=== PATIENT | female | born 2000 | race Caucasian/White ===

== ENCOUNTER 2019-01-28 22:54 | Emergency (ER) | payer MEDICARE, SELFPAY ==
[2019-01-28 22:54] VITALS: BP 110/69; PULSE 80; RESP 16; TEMP 36.8; O2SAT 100; BMI 21.0
--- NOTE | 2019-01-28 23:23 | ED.DCSUM_ITS ---
History of Present Illness Chief Complaint: Abd Pain Informant: Patient Onset: Today Context: Sudden Onset Timing: Continuous Quality: Pain Location: Left side of the abdomen Current Severity: Moderate Maximum Severity: Severe Worsened by: Walking, upright position Relieved by: Nothing Associated Symptoms: Nausea Narrative: Patient is a 18-year-old female whose last normal menstrual period was March 2018. She progesterone control. She has no history of STD or ovarian cyst. She does report lightheadedness with standing. Pain started abruptly while doing homework 2 hours prior to presentation. She denies cardiac, respiratory or urologic symptoms. Prior similar symptoms: No Recent Illness/Hospitalization: No - Past Medical History (1) No significant past medical history Status: Acute Past Medical History - Allergies and Home Meds Allergies/Adverse Reactions: Allergies No Known Allergies Allergy (Verified 01/28/19 22:57) Primary Care Physician: Jana Merrill NP-C [Primary Care Provider] - Lives: With Family Smoking Status: Never smoker Alcohol: None Drugs: None Review of Systems General: Denies: Chills, Fever, Malaise, Subjective, Sweats Eyes: Denies: Visual changes - bilaterally, Blurred Vision - bilaterally ENT: Denies: Rhinorrhea, Sore throat Cardiovascular: Denies: Chest pain, Palpitations, Heart racing Respiratory: Denies: Dyspnea, Cough, Dyspnea on exertion Gastrointestinal: Reports: Abdominal pain, Nausea. Denies: Vomiting, Diarrhea, Constipation, Melena, Hematochezia, -, - Genitourinary: Denies: Dysuria, Hematuria, Frequency Musculoskeletal: Denies: Myalgias, Arthralgias, Back pain, Extremity Pain Skin: Denies: Rash, Wounds Neurological: Denies: Headache, Weakness, Parasthesia, Numbness Hematologic: Denies: Easy bruising, Easy bleeding Physical Exam Vital Signs/Narrative: Vital Signs Temp Pulse Resp BP Pulse Ox 01/28/19 22:54 98.2 F 80 16 110/69 100 Inital Vital Signs reviewed: Yes General: Well nourished, Well developed, Acute Distress - Patient looks pale and uncomfortable Head: Normocephalic, Atraumatic Eyes: Perrl, EOMI. Negative for: Pale conjunctiva, Scleral icterus, - ENT: Moist mucous membranes, No rhinorrhea Neck: Supple, Nontender, No lymphadenopathy, No JVD, - Cardiovascular: Regular rate, Regular rhythm, No murmurs, Normal S1, Normal S2 Respiratory: No distress, CTA bilaterally, Chest nontender Abdomen: Soft, Nondistended, No masses, Tender, Guarding, Rebound tenderness, Hypoactive bowel sounds. Negative for: Normal bowel sounds, Hepatomegaly, Splenomegaly, Mass, Pulsatile mass Back: Nontender. Negative for: Normal Inspection, CVA tenderness - Assessing for CVA tenderness caused abdominal pain Extremities: Nontender, No edema Skin: No rash, Pallor. Negative for: Cyanosis, Diaphoresis, Jaundice Neurological: Alert, Oriented x3, Cranial nerves II-XII grossly intact, Normal Strength, Normal Sensation, Normal Gait - Patient gait was not normal. She had slight shuffling of her feet. She appeared uncomfortable walking from the examination room to the restroom. Psychological: Normal affect, Normal Mood Diagnostic/Tx/Re-eval Laboratory Results 01/28/19 01/28/19 01/28/19 23:15 23:20 23:20 WBC 10.1 RBC 4.63 Hgb 13.4 Hct 39.0 MCV 84.2 MCH 28.9 MCHC 34.4 RDW 12.7 RDW Differential 38.6 Plt Count 239 MPV 9.9 Immature Gran % (Auto) 0.200 Neut % (Auto) 49.1 Lymph % (Auto) 43.2 H [place]ink[place] % (Auto) 7.0 Eos % (Auto) 0.3 Baso % (Auto) 0.2 Absolute Neuts (auto) 5.0 Absolute Lymphs (auto) 4.35 Total Counted Not Reportable Serum , Qual NEGATIVE Urine Color Yellow Urine Clarity Sl. Cloudy Urine pH 7.0 Ur Specific [place] 1.015 Urine Protein 15 H Urine Glucose (UA) Normal Urine Ketones 5 H Urine Occult Blood 10 H Urine Nitrite Negative Urine Bilirubin Negative Urine Urobilinogen Normal Ur Leukocyte Esterase 25 H Urine RBC 0-5 SEEN Urine WBC 0-5 SEEN Ur Squamous Epith Cells 5-10 SEEN Urine Bacteria 2+ Urine Mucus 2+ - Medical Decision Making IV was established. Patient was made n.p.o. With abrupt onset of abdominal pain in a sexually active female with peritoneal findings need to evaluate for and specifically ectopic . This may rub resolved torsion or hemorrhagic ovarian cyst. Appropriate blood work was ordered. Laboratory tests are nondiagnostic. CBC and BMP are unremarkable. Serum test is negative. UA reveals no pyuria with 2+ bacteria and 5-10 epithelial cells. Orthostatic vitals were ordered and set up for pelvic exam. If orthostatic need to evaluate for hemorrhagic ovarian cyst. External genitalia normal. Vaginal cervical mucosa appeared normal. Patient's loss is not consistent with a normal part of cervix. Negative [place] sign. There is no cervical motion tenderness. Uterus is normal in size and nontender. Patient has mild discomfort with palpation of left ovary which is approximately the size of an almond. The right ovary is normal and nontender. Since patient has improved is not orthostatic will discharge to home with appropriate home-going instruction and more importantly reasons to return.. ED Disposition - Plan for ED Patient: Disposition: Home or Assisted Living Diagnosis: Ruptured ovarian cyst Instructions: ED Cyst Ovarian Referrals: Jana Merrill, ORAL-C [Primary Care Provider] - 3-5 Days if not improving Additional Instructions: Take either 4 Advil every 8 hours for the next 2-3 days or 2 Aleve every 12 hours for the next 2-3 days for your discomfort. If you become lightheaded, the pain becomes severe or you have referred pain to your right or left shoulder at return as soon as possible.
[2019-01-28] MEDS: Morphine 4 MG/ML Syringe IV (23:27)
[2019-01-28] MEDS: Ondansetron 4 MG/2 ML Vial IV (23:28)
[2019-01-28 23:32] LABS: Absolute Lymphocyte Count 4.35 X10^3/ul (0.83-4.51); Basophil# 0.02 X10^3/uL; Basophil% 0.2 % (0-1); Eosinophil# 0.03 X10^3/uL; Eosinophils% 0.3 % (0-5); Hemoglobin 13.4 g/dl (12.0-15.0); Lymphocyte # 4.35 X10^3/ul (4.0); Lymphocyte % 43.2 % (19-41); Mean Corp Hgb Conc 34.4 g/gl (32-36); Mean Corpuscular Hgb 28.9 pg (27.0-32.0); Mean Corpuscular Volume 84.2 fL (81-99); Mean Platelet Vol. 9.9 fl (6.2-12.0); Neutrophil # 4.95 X10^3/uL (2.7-7.7); Neutrophil % 49.1 % (47-70); Platelet Count 239 K/mm3 (150-450); RBC Distribution Width CV 12.7 % (11.6-14.6); RBC Distribution Width SD 38.6 fl (35.1-43.9); Red Blood Count 4.63 M/mm3 (4.2-5.4); White Blood Count 10.1 K/mm3 (4.4-11.0)
[2019-01-28 23:33] LABS: POSITIVE COUNT NO; POSITIVE DIFFERENTIAL NO; POSITIVE MORPHOLOGY NO
[2019-01-28 23:41] LABS: Internal QC Validated? YES +Cl - CLEAR BKGD; Pregnancy, Serum, hCG Quali. NEGATIVE Negative
[2019-01-28 23:47] LABS: Color, Urine Yellow (Yellow); Glucose, Dipstick Normal (Normal); Ketone-Dipstick 5 mg/dl (Negative); Leukocyte Esterase-Dipstick 25 /ul (Negative); Nitrite-Dipstick Negative (Negative); Occult Blood-Urine 10 /ul (Negative); Protein-Dipstick 15 mg/dl (Negative); Specific Gravity, Urine 1.015 (1.002-1.030); Urine Bilirubin Dipstick Negative (Negative); Urine Clarity Sl. Cloudy (Clear); Urine Urobilinogen Normal (Normal)
[2019-01-28 23:51] LABS: Bacteria 2+ /hpf (None Seen); Mucous, Urine 2+ /hpf (<or=2+)
[2019-01-28 23:52] LABS: Red Blood Cells-Urine 0-5 SEEN /hpf (0-5); Squamous Epithelial Cells - UA 5-10 SEEN /hpf (5-10); White Blood Cells 0-5 SEEN /hpf (0-5)
[2019-01-29 00:25] VITALS: BP 107/73; BP 114/78; BP 116/74; PULSE 72; PULSE 84; PULSE 88
[2019-01-29 00:54] VITALS: BP 110/70; PULSE 99; RESP 17; O2SAT 100
== END 2019-01-29 01:09 | disposition home or self-care (01) ==
PROVIDERS: Emergency Provider Emergency Medicine; Family Provider Nurse Practitioner Family; PCP Nurse Practitioner Family
DX: N83.202 Unspecified ovarian cyst, left side (principal)
CPT/HCPCS: 81001; 84703; 85025; 96374; 96375; 99285; A4216; J2405

== ENCOUNTER 2019-06-08 08:39 | Outpatient (RCR) | payer OTHER, SELFPAY ==
[2019-06-08 09:18] LABS: Absolute Lymphocyte Count 2.22 X10^3/uL (0.83-4.51); Absolute Neutrophil Count 3.8 X10^3/uL (2.0-7.7); Basophil# 0.03 X10^3/uL; Basophil% 0.4 % (0-1); Eosinophil# 0.05 X10^3/uL; Eosinophils% 0.7 % (0-5); Hematocrit 39.3 % (37-47); Hemoglobin 12.8 g/dL (12.0-15.0); Lymphocyte # 2.22 X10^3/ul (4.0); Mean Corp Hgb Conc 32.6 g/dL (32-36); Mean Corpuscular Hgb 29.2 pg (27.0-32.0); Mean Corpuscular Volume 89.5 fL (81-99); Mean Platelet Vol. 9.8 fl (6.2-12.0); Monocyte# 0.61 X10^3/uL; Monocyte% 9.1 % (0-10); NRBC Flagged by Analyzer 0 % (0-5); Neutrophil % 56.7 % (47-70); Platelet Count 192 K/mm3 (150-450); RBC Distribution Width CV 12.4 % (11.6-14.6); RBC Distribution Width SD 40.9 fl (35.1-43.9); Red Blood Count 4.39 M/mm3 (4.2-5.4); White Blood Count 6.7 K/mm3 (4.4-11.0)
[2019-06-08 09:21] LABS: Internal QC Validated? YES +Cl - CLEAR BKGD; Pregnancy, Urine Negative Negative
[2019-06-08 09:32] LABS: AST(SGOT) 13 U/L (15-37); Alanine Aminotransfer ALT/SGPT 21 U/L (13-56); Albumin, Serum 3.7 g/dL (3.2-5.0); Alkaline Phosphatase 57 U/L (45-117); Bilirubin, Direct 0.14 mg/dL (0.00-0.30); Cholesterol 96 mg/dL (200); Globulin 3.3 g/dL (2.2-4.2); High Density Lipoprotein 43 mg/dL; Triglycerides 54 mg/dL; Very Low Density Lipoprotein 11 mg/dL (5-40)
== END 2019-06-08 10:00 | disposition home or self-care (01) ==
LOC: LAB 08:39
PROVIDERS: Family Provider Nurse Practitioner Family; PCP Nurse Practitioner Family
DX: Z79.899 Other long term (current) drug therapy (principal)
CPT/HCPCS: 36415; 80061; 80076; 81025; 85025

== ENCOUNTER → 2019-06-18 | Outpatient (CLI) | payer OTHER, SELFPAY ==
[2019-06-18 11:09] LABS: Internal QC Validated? YES +Cl - CLEAR BKGD; Pregnancy, Urine Negative Negative
== END | disposition home or self-care (01) ==
PROVIDERS: Family Provider Nurse Practitioner Family; PCP Nurse Practitioner Family
DX: Z79.899 Other long term (current) drug therapy (principal)
CPT/HCPCS: 81025

== ENCOUNTER 2019-07-11 10:41 | Outpatient (RCR) | payer OTHER, SELFPAY ==
[2019-07-11 11:10] LABS: Internal QC Validated? YES +Cl - CLEAR BKGD
[2019-07-11 11:11] LABS: Pregnancy, Urine Negative Negative
== END 2019-07-11 12:00 | disposition home or self-care (01) ==
LOC: LAB 10:41
PROVIDERS: Family Provider Nurse Practitioner Family; PCP Nurse Practitioner Family
DX: Z79.899 Other long term (current) drug therapy (principal)
CPT/HCPCS: 81025

== ENCOUNTER 2019-08-07 07:38 | Outpatient (RCR) | payer OTHER, SELFPAY ==
[2019-08-07 08:10] LABS: Absolute Lymphocyte Count 3.03 X10^3/uL (0.83-4.51); Absolute Neutrophil Count 4.2 X10^3/uL (2.0-7.7); Basophil# 0.03 X10^3/uL; Basophil% 0.4 % (0-1); Eosinophil# 0.07 X10^3/uL; Eosinophils% 0.9 % (0-5); Hematocrit 42.9 % (37-47); Hemoglobin 13.8 g/dL (12.0-15.0); Lymphocyte # 3.03 X10^3/ul (4.0); Mean Corp Hgb Conc 32.2 g/dL (32-36); Mean Corpuscular Hgb 28.6 pg (27.0-32.0); Mean Corpuscular Volume 88.8 fL (81-99); Monocyte# 0.66 X10^3/uL; Monocyte% 8.3 % (0-10); NRBC Flagged by Analyzer 0 % (0-5); Neutrophil # 4.16 X10^3/uL (2.7-7.7); Neutrophil % 52.1 % (47-70); Platelet Count 213 K/mm3 (150-450); RBC Distribution Width CV 12.5 % (11.6-14.6); RBC Distribution Width SD 41.2 fl (35.1-43.9); Red Blood Count 4.83 M/mm3 (4.2-5.4)
[2019-08-07 08:18] LABS: Internal QC Validated? YES +Cl - CLEAR BKGD; Pregnancy, Urine Negative Negative
[2019-08-07 08:44] LABS: AST(SGOT) 18 U/L (15-37); Alanine Aminotransfer ALT/SGPT 21 U/L (13-56); Albumin, Serum 3.9 g/dL (3.2-5.0); Alkaline Phosphatase 62 U/L (45-117); Bilirubin, Direct 0.14 mg/dL (0.00-0.30); Cholesterol 108 mg/dL (200); Globulin 3.5 g/dL (2.2-4.2); High Density Lipoprotein 39 mg/dL; Protein, Total 7.4 g/dL (6.4-8.2); Triglycerides 85 mg/dL; Very Low Density Lipoprotein 17 mg/dL (5-40)
== END 2019-08-07 18:00 | disposition home or self-care (01) ==
LOC: LAB 07:38
PROVIDERS: Family Provider Nurse Practitioner Family; PCP Nurse Practitioner Family
DX: Z79.899 Other long term (current) drug therapy (principal)
CPT/HCPCS: 36415; 80061; 80076; 81025; 85025

== ENCOUNTER 2019-09-02 07:47 | Outpatient (RCR) | payer OTHER, SELFPAY ==
[2019-09-02 08:54] LABS: Absolute Lymphocyte Count 2.84 X10^3/uL (0.83-4.51); Absolute Neutrophil Count 3.8 X10^3/uL (2.0-7.7); Basophil# 0.03 X10^3/uL; Basophil% 0.4 % (0-1); Eosinophil# 0.09 X10^3/uL; Eosinophils% 1.2 % (0-5); Hemoglobin 12.4 g/dL (12.0-15.0); Lymphocyte # 2.84 X10^3/ul (4.0); Lymphocyte % 38.5 % (19-41); Mean Corp Hgb Conc 31.8 g/dL (32-36); Mean Corpuscular Hgb 28.4 pg (27.0-32.0); Mean Corpuscular Volume 89.2 fL (81-99); Mean Platelet Vol. 10.4 fl (6.2-12.0); Monocyte# 0.59 X10^3/uL; NRBC Flagged by Analyzer 0 % (0-5); Neutrophil % 51.6 % (47-70); Platelet Count 172 K/mm3 (150-450); RBC Distribution Width CV 12.8 % (11.6-14.6); RBC Distribution Width SD 42.2 fl (35.1-43.9); Red Blood Count 4.37 M/mm3 (4.2-5.4); White Blood Count 7.4 K/mm3 (4.4-11.0)
[2019-09-02 08:56] LABS: Internal QC Validated? YES +Cl - CLEAR BKGD; Pregnancy, Urine Negative Negative
[2019-09-02 09:22] LABS: AST(SGOT) 26 U/L (15-37); Alanine Aminotransfer ALT/SGPT 30 U/L (13-56); Albumin, Serum 3.8 g/dL (3.2-5.0); Alkaline Phosphatase 56 U/L (45-117); Bilirubin, Direct 0.12 mg/dL (0.00-0.30); Cholesterol 110 mg/dL (200); High Density Lipoprotein 36 mg/dL; Protein, Total 6.8 g/dL (6.4-8.2); Triglycerides 64 mg/dL; Very Low Density Lipoprotein 13 mg/dL (5-40)
== END 2019-09-02 18:00 | disposition home or self-care (01) ==
LOC: LAB 07:47
PROVIDERS: Family Provider Nurse Practitioner Family; PCP Nurse Practitioner Family
DX: Z79.899 Other long term (current) drug therapy (principal); L70.0 Acne vulgaris
CPT/HCPCS: 36415; 80061; 80076; 81025; 85025

== ENCOUNTER → 2019-10-01 16:13 | Outpatient (CLI) | payer OTHER, SELFPAY ==
[2019-10-02 01:01] LABS: Internal QC Validated? YES +Cl - CLEAR BKGD; Pregnancy, Urine Negative Negative
== END ==
PROVIDERS: Family Provider Nurse Practitioner Family; PCP Nurse Practitioner Family
DX: L70.0 Acne vulgaris (principal); Z79.899 Other long term (current) drug therapy
CPT/HCPCS: 81025

== ENCOUNTER 2019-11-04 10:33 | Outpatient (RCR) | payer OTHER, SELFPAY ==
[2019-11-04 11:03] LABS: Internal QC Validated? YES +Cl - CLEAR BKGD; Pregnancy, Urine Negative Negative
== END 2019-11-04 18:00 | disposition home or self-care (01) ==
LOC: LAB 10:33
PROVIDERS: Family Provider Nurse Practitioner Family; PCP Nurse Practitioner Family
DX: Z79.899 Other long term (current) drug therapy (principal); L70.0 Acne vulgaris
CPT/HCPCS: 81025

== ENCOUNTER 2019-12-02 13:46 | Outpatient (RCR) | payer OTHER, SELFPAY ==
[2019-12-02 14:22] LABS: Internal QC Validated? YES +Cl - CLEAR BKGD; Pregnancy, Urine Negative Negative
== END 2019-12-02 18:00 | disposition home or self-care (01) ==
LOC: LAB 13:46
PROVIDERS: Family Provider Nurse Practitioner Family; PCP Nurse Practitioner Family
DX: L70.0 Acne vulgaris (principal); Z79.899 Other long term (current) drug therapy
CPT/HCPCS: 81025